=== PATIENT | female | born 1995 | race Two or more races ===

== ENCOUNTER 2020-02-26 08:02 | Outpatient (REF) | payer OTHER, SELFPAY | END 2020-02-26 08:03 | disposition home or self-care (01) | LOC: HO.LAB 08:02 | PROVIDERS: Visit Provider Internal Medicine | DX: Z20.828 Contact with and (suspected) exposure to other viral communicable diseases (principal) | CPT/HCPCS: C9803; U0003 ==

== ENCOUNTER 2020-07-09 17:11 | Emergency (ER) | payer OTHER, SELFPAY ==
[2020-07-09 17:16] VITALS: BP 142/84; PULSE 78; RESP 16; TEMP 37.2; O2SAT 98; BMI 30.9
== END 2020-07-09 20:27 | disposition left against medical advice (07) ==
PROVIDERS: Emergency Provider Emergency Medicine
DX: R10.9 Unspecified abdominal pain (principal)
CPT/HCPCS: 99282

== ENCOUNTER 2020-07-18 14:08 | Outpatient (REF) | payer OTHER, SELFPAY ==
--- NOTE | ~2020-07-18 | US_ITS ---
EXAMINATION: US RETROPERITONEAL LIMITED (RENAL ONLY) CLINICAL INFORMATION: Left lower quadrant pain. COMPARISON: [facility] 10/02/2017. CT abdomen and pelvis 09/17/2017. TECHNIQUE: Real-time imaging of the kidneys. FINDINGS: RIGHT KIDNEY: 11.1 x 4.6 x 4.9 cm (SAG x AP x TRV). The kidney is normal in size, contour, and echogenicity. Renal cortical thickness is normal. No calculi or focal parenchymal lesions. No hydronephrosis. LEFT KIDNEY: 11.5 x 4.6 x 5.1 cm (SAG x AP x TRV). The kidney is normal in size, contour, and echogenicity. Renal cortical thickness is normal. No calculi or focal parenchymal lesions. No hydronephrosis. US/US renal BI IMPRESSION: Normal renal ultrasound. No stones found on today's exam..
== END 2020-07-18 14:09 | disposition home or self-care (01) ==
LOC: HO.US 14:08
PROVIDERS: PCP Internal Medicine; Visit Provider Emergency Medicine
DX: R10.32 Left lower quadrant pain (principal); R35.0 Frequency of micturition
CPT/HCPCS: 76775

== ENCOUNTER 2022-10-22 12:22 | Emergency (ER) | payer OTHER, SELFPAY ==
[2022-10-22 12:25] VITALS: BP 152/79; PULSE 98; RESP 18; TEMP 36.2; O2SAT 95; BMI 37.6
--- NOTE | 2022-10-22 12:32 | ED_ITS ---
HPI - General Adult General Chief complaint: General Medical Stated complaint: animal bite Time Seen by Provider: 10/22/22 12:31 Source: patient and RN notes reviewed Mode of arrival: ambulatory Limitations: no limitations History of Present Illness HPI narrative: This is a 65-recu-ori-female, with a past medical history of asthma, presenting to the ER with complaints of insect bite on right middle finger. Pt is unsure what type of insect bit her. She states that she has a burning like sensation in her finger. She denies taking any medications at home to treat her current symptoms. No shortness of breath or difficulty swallowing or breathing. Denies any chest pain, fevers, chills, nausea, vomiting or diarrhea. Denies any other complaints or concerns at this time. MD complaint: insect bite Onset (ago): minute(s) Location: upper extremity Radiation: non-radiation Severity: mild Quality: burning Pain Consistency: constant Relieving factors: none Exacerbating factors: none Associated symptoms: denies other symptoms Treatments prior to arrival: none Related Data Allergies Allergy/AdvReac Type Severity Reaction Status Date / Time acetaminophen Allergy Intermediate Shortness Verified 10/22/22 12:25 [From Excedrin Extra of Breath Strength] aspirin Allergy Intermediate Shortness Verified 10/22/22 12:25 [From Excedrin Extra of Breath Strength] caffeine Allergy Intermediate Shortness Verified 10/22/22 12:25 [From Excedrin Extra of Breath Strength] Penicillins Allergy Intermediate Rash Verified 10/22/22 12:25 Review of Systems Review of Systems: Constitutional: No Weight loss, No Fever, No Chills ENT/Mouth: No Ear Pain, No Nasal Congestion, No Sinus Pain, No Hoarseness, No sore throat, No Rhinorrhea, No Swallowing Difficulty Cardiovascular: No Chest Pain, No SOB Respiratory: No Cough, No Sputum, No Wheezing Gastrointestinal: No Nausea, No Vomiting, No Diarrhea, No Constipation, No Abdominal pain Genitourinary: No Dysuria, No Urinary Frequency, No Hematuria, No Urinary Incontinence/retention, No Urgency, No Flank Pain Musculoskeletal: No joint pain, No Myalgias, No Joint Swelling Skin: No Skin Lesions, No rash Neuro: No Weakness, No Numbness, No Paresthesias [facility] Past Medical History Medical History (Updated 10/22/22 @ 12:37 by FARIDA Vasquez) Asthma Social History Social History Advance Directives: No Advance Directives Information Provided: No Physical Exam ED Vital Signs: Vital Signs - 24 hr 10/22/22 12:25 Temperature 97.2 F Pulse Rate 98 Respiratory Rate 18 Blood Pressure 152/79 H Pulse Oximetry 95 Oxygen Delivery Method Room Air BMI result Body Mass Index 37.6 General: Awake, alert, and oriented X3. No acute distress. HEENT: Normal inspection, oropharynx patent or pharyngeal erythema, or edema. No Stridor CVS: Normal heart rate and rhythm. Pulses normal. Respiratory: No respiratory distress, lungs clear to auscultation bilaterally, no wheezes, rales, or rhonchi Skin: Right finger dorsal middle phalange, there is a single, punctate puncture wound with mild edema, no fluctuance or warmth. No drainage, active bleeding, or stinger remaining in wound. Full flexion and extension of DIP, PIP and MCP. Radial pulses 2+. Extremities: Normal to inspection. Neuro: Oriented X 3. No motor deficit. No sensory deficit. Medications Administered Discontinued Medications Generic Name Dose Route Start Last Admin Trade Name Freq PRN Reason Stop Dose Admin Bacitracin 1 appl 10/22/22 12:31 10/22/22 12:37 Bacitracin Oint 0.9 Gm Packet TOPICAL 10/22/22 12:32 1 appl ONCE ONE Administration Protocol Diphtheria/Tetanus/Acell Pertussis 0.5 ml 10/22/22 12:31 10/22/22 12:37 Diphth,Pertus(Acell),Tet Adult 0.5 Ml Syringe IM 10/22/22 12:32 0.5 ml .ONCE ONE Administration Medical Decision Making Medical Decision Making MDM Narrative: This is a 89-iggl-kvy-female presenting to the emergency department with complaints of insect bite on right third finger just prior to arrival. Vital signs stable. Insect bite noted to right third digit with no surrounding erythema, full ROM of right third digit. No SOB, difficulty swallowing, chest pain. Airway is patent, no stridor noted. TDAP updated today. Was going to medicate patient Benadryl in department for symptomatic relief but would like to take this when she gets home. Take Benadryl when she returns home educated in watching for any signs of infection. Given return precautions. Patient understands agrees with plan. Patient stable for discharge. Differential Diagnosis Differential Diagnoses: The differential diagnosis associated with the presentation includes Insect bite, anaphylaxis, laceration, cellulitis Admission/Observation Consideration of admission/observation: Escalation of care including admission/observation considered Patient would have been admitted to the hospital had her work up had any findings where hospital admission was appropriate and her clinical presentation warranted hospital admission. Discharge Plan Discharge Clinical Impression: Insect bite Patient Disposition: Home, Self-Care Instructions: Cold Compress or Soak (ED) Additional Instructions: Please keep wound clean and dry. Cold compresses will help with pain and swelling. Take benadryl 50mg as directed as needed for symptoms. We updated your tetanus immunization in the department today. If any new or worsening symptoms occur, including but not limited to difficulty swallowing or breathing worsening redness, swelling, fevers or chills, please return for re-evaluation. Interventions: ED Discharge Assessment Last Done: 10/22/22 12:39 Discharge Date/Time: 10/22/22 12:51
[2022-10-22] MEDS: Bacitracin Oint 0.9 GM PACKET 1 APPL TOPICAL (12:37)
[2022-10-22] MEDS: Diphth,Pertus(ACell),Tet Adult 0.5 ML SYRINGE IM (12:37)
--- NOTE | 2022-10-22 12:38 | PC.NURSE ---
pt medicated per order in triage
== END 2022-10-22 12:51 | disposition home or self-care (01) ==
LOC: HO.ED 12:48
PROVIDERS: Emergency Provider Emergency Medicine
DX: S60.462A Insect bite (nonvenomous) of right middle finger, initial encounter (principal); W57.XXXA Bitten or stung by nonvenomous insect and other nonvenomous arthropods, initial encounter; Y93.9 Activity, unspecified; Y92.9 Unspecified place or not applicable; Y99.9 Unspecified external cause status
CPT/HCPCS: 90471; 90715; 99282; 99284

== ENCOUNTER 2023-08-10 12:06 | Emergency (ER) | payer MEDICAID, SELFPAY ==
[2023-08-10 13:03] VITALS: BP 138/87; PULSE 80; RESP 18; TEMP 36.6; O2SAT 98; BMI 38.4
--- NOTE | 2023-08-10 13:03 | ED.EXTPRO ---
HPI - Extremity Problem General Chief complaint: General Medical Stated complaint: l foot pain Time Seen by Provider: 08/10/23 13:53 Source: patient Mode of arrival: ambulatory Limitations: no limitations History of Present Illness HPI Narrative: 28-year-old female with no significant past medical history presents to the ED today for evaluation of left foot pain x1 week. She reports a callus to the lateral plantar aspect of her left foot that is painful to walk on. 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 Denies injury or trauma to the foot. Denies history of diabetes. Denies fever, chills, numbness/tingling/weakness of the foot. Related Data Previous Rx's ?Medication ?Instructions ?Recorded bacitracin zinc 500 unit/gram 1 appl topical BID #14.2 grams 08/10/23 topical ointment (Antibiotic (bacitracin zinc)) Allergies Allergy/AdvReac Type Severity Reaction Status Date / Time acetaminophen Allergy Intermediate Shortness Verified 08/10/23 13:06 [From Excedrin Extra of Breath Strength] aspirin Allergy Intermediate Shortness Verified 08/10/23 13:06 [From Excedrin Extra of Breath Strength] caffeine Allergy Intermediate Shortness Verified 08/10/23 13:06 [From Excedrin Extra of Breath Strength] Penicillins Allergy Intermediate Rash Verified 08/10/23 13:06 Review of Systems Review of Systems: Constitutional: No fever, chills, fatigue, night sweats, weight changes ENT/Mouth: No ear pain, hearing loss, nasal congestion, sinus pain, rhinorrhea, sore throat Eyes: No eye pain, swelling, redness, vision changes, discharge Cardio: No chest pain, palpitations, KESSLER, orthopnea, peripheral edema Pulm: No SOB, cough, sputum, wheezing, dyspnea, hemoptysis GI: No nausea, vomiting, hematemesis, abdominal pain, diarrhea, constipation, hematochezia, melena : No irregular bleeding, dysuria, frequency, urgency, hesitancy, hematuria, flank pain, urinary flow changes, urinary incontinence or retention MSK: No back pain, neck pain, joint pain, myalgias, +left foot pain Skin: No lesions, rashes Neuro: No weakness, numbness, paresthesias, LOC, dizziness, headache Psych: No anxiety/panic, depression, SI/HI, AH/VH All other systems reviewed and are negative. [facility] Past Medical History Attestation statement: The following information was validated with the patient. Source: old records reviewed and nursing notes reviewed Medical History Asthma Social History Social History Advance Directives: No Advance Directives Information Provided: No Physical Exam Vital Signs: Vital Signs: Last Vital Signs Temp 98 F 08/10/23 16:10 Pulse 81 08/10/23 16:10 Resp 16 08/10/23 16:10 BP 134/75 08/10/23 16:10 Pulse Ox 99 08/10/23 16:10 O2 Del Method Room Air 08/10/23 16:10 BMI result Body Mass Index 38.4 Vital signs stable Const: General: cooperative, healthy appearing, comfortable and no acute distress Orientation/consciousness: patient oriented x3 Limitations: no limitations HEENT: Head: Yes normal to inspection, Yes No palpable skull fracture present, Yes normocephalic and Yes atraumatic Resp: Effort & Inspection: normal respiratory effort and able to speak in complete sentences Auscultation: clear to auscultation bilaterally Cardio: Rate: regular rate Rhythm: regular rhythm Skin: Other: + plantar wart noted to the lateral aspect of left foot. Tender to palpation. No erythema, fluctuance or warmth. Neuro: General: patient oriented x3 Extrem: General: Yes normal exam except as noted Course Course Course Narrative: This is a Rapid Medical Examination (RME) performed by Billie Loo PA-C in triage. Full HPI, ROS, assessment and treatment plan per primary provider in the Main ED. 28 y/o female presenting to the ER for evaluation of left foot pain. reports having a callus. exam c/w plantar wart in the bottom of the foot lateral aspect. no erythema or fluctuance to suggest infection Plan: excise wart vs topical treatments Reevaluation(s) Reevaluation #1: 1450-- patient seen in triage and provided with management options. Patient would like the plantar wart excised as she needs to return back to work. Will plan for excision. 1907-- Plantar wart on left foot excised using 10 mL lidocaine with epi and 15 blade scalpel. Patient tolerated procedure well. Entire area and head of wart excised. Will send bacitracin to pharmacy. Patient has remained stable throughout ED visit today. Discussed worrisome signs and symptoms and when to return to the ED. All questions answered at this time. Patient is agreeable with disposition and stable for discharge. Medications Administered Discontinued Medications Generic Name Dose Route Start Last Admin Trade Name Emmy PRN Reason Stop Dose Admin Bacitracin 1 appl 08/10/23 15:57 08/10/23 16:02 Bacitracin Oint 0.9 Gm Packet TOPICAL 08/10/23 15:58 1 appl ONCE ONE Administration Protocol Lidocaine/Epinephrine 10 ml 08/10/23 15:00 08/10/23 15:07 Lidocaine Hcl 1%/Epi 1:100,000 10 Ml Vial INFILTRATI 08/10/23 15:01 10 ml ONCE ONE Administration Medical Decision Making Medical Decision Making MDM Narrative: 28-year-old female with no significant past medical history presents to the ED today for evaluation of left foot pain x1 week. Vital signs stable. She is afebrile. On exam, there is a plantar wart noted to the lateral aspect of left foot. Tender to palpation. No erythema, fluctuance or warmth. Differential diagnosis includes plantar wart, callus. Unlikely osteomyelitis, cellulitis. Plan for local anesthesia, excision and discharge. Differential Diagnosis Differential Diagnoses: The differential diagnosis associated with the presentation includes as above. Admission/Observation Not indicated Tests considered The following testing was considered but not selected: Considered ordering x-ray of left foot however clinical diagnosis of plantar wart, not warranted at this time. Considered ordering labs however there is no concern for infection, not warranted at this time. Prescription Management I considered prescription management with: Pain Medication Social Determinants Patient?s care significantly limited by Social Determinants of Health including: Other Social Determinant of Health Critical Care Time Critical Care Time Critical Care Time: No Discharge Plan Discharge Clinical Impression: Plantar wart of left foot Patient Disposition: Home, Self-Care Instructions: Plantar Wart (ED) Additional Instructions: A plantar wart was excised from your left foot. Please keep the area clean and dry. You may apply bacitracin or neosporin. You have been provided with a referral to a primary care provider. You may call them to establish care. They will not call you. You have also been provided with a referral to a arabic teacher. You may call them to make an appointment. They will not call you. Return with new or worsening symptoms. In the case of emergency call 911. Prescriptions: New bacitracin zinc [Antibiotic (bacitracin zinc)] 500 unit/gram ointment 1 appl topical BID Qty: 14.2 0RF Referrals: [facility] Family Medicine [Provider Group] [facility] [Provider Group] [facility] [Provider Group] Ian Perdomo MD [Physician] - Stand Alone Forms: Work/School Release Interventions: ED Discharge Assessment Last Done: 08/10/23 16:10 Discharge Date/Time: 08/10/23 16:18 Print Language: [place] Islander
[2023-08-10] MEDS: Lidocaine HCl 1%/Epi 1:100,000 10 ML VIAL INFILTRATI (15:07)
--- NOTE | 2023-08-10 15:08 | PC.NURSE ---
Pt awaitng for provider, on stretcher, calm/cooperative, respiration even and unlabored.
[2023-08-10] MEDS: Bacitracin Oint 0.9 GM PACKET 1 APPL TOPICAL (16:02)
[2023-08-10 16:10] VITALS: BP 134/75; PULSE 81; RESP 16; TEMP 36.6; O2SAT 99
== END 2023-08-10 16:18 | disposition home or self-care (01) ==
PROVIDERS: Emergency Provider Emergency Medicine Emergency Medical Services
DX: B07.0 Plantar wart (principal)
CPT/HCPCS: 11420; 99283; 99284

== ENCOUNTER 2023-08-20 09:38 | Outpatient (REF) | payer MEDICAID, SELFPAY ==
[2023-08-20 11:42] LABS: MANUAL DIFF FLAG NO
[2023-08-20 11:57] LABS: Alanine Aminotransferase 37 U/L (0-31); Alkaline Phosphatase 70 U/L (39-117); Anion Gap 11 (12-20); Aspartate Amino Transferase 29 U/L (5-31); Bilirubin Direct 0.2 mg/dL (0.0-0.5); Bilirubin Total 0.4 mg/dL (0.0-1.0); Blood Urea Nitrogen 14 mg/dL (9-16); Calcium 9.1 mg/dL (8.4-10.2); Carbon Dioxide 27 mmol/L (22-29); Chloride 106 mmol/L (96-108); Cholesterol 143 mg/dL (<200); Estimated Glomerular Filt Rate > 60; Glucose Random 86 mg/dL (60-115); HDL Cholesterol 51 mg/dL (>40); LDL Cholesterol Calculated 80 mg/dL (<100); Potassium 4.2 mmol/L (3.3-5.1); Sodium 140 mmol/L (135-145); Total Protein 7.3 g/dL (6.5-8.0); Triglycerides 62 mg/dL (<150)
[2023-08-20 11:59] LABS: Basophils Percent Auto 0.3 % (0-2); Eosinophils Absolute Auto 0.1 X10*3/uL (0.0-0.4); Eosinophils Percent Auto 0.9 % (0-4); Hematocrit 42.1 % (37.0-47.0); Hemoglobin 13.9 g/dl (12.0-16.0); Imm Gran Abs Auto 0.02 X10*3/uL (0.00-0.03); Imm Gran Pct Auto 0.3 % (0.0-0.4); Lymphocytes Absolute Auto 1.8 X10*3/uL (1.2-4.9); Lymphocytes Percent Auto 22.8 % (20-40); Mean Corpuscular Hemoglobin 30.9 pg (27.0-33.0); Mean Corpuscular Volume 93.6 fL (80.0-98.0); Mean Platelet Volume 11.1 fL (9.4-12.3); Monocytes Absolute Auto 0.4 X10*3/uL (0.1-1.2); Monocytes Percent Auto 5.1 % (2-11); Neutrophils Absolute Auto 5.6 x10*3/uL (2.0-8.3); Neutrophils Percent Auto 70.6 % (45-73); Platelet Count 220 X10*3/uL (160-400); Red Cell Distribution Width 13.3 % (11.0-16.0); White Blood Count 7.9 X10*3/uL (4.8-10.8)
[2023-08-20 12:07] LABS: Estimated Average Glucose 111 mg/dL; Hemoglobin A1c % 5.5 % (<6.0)
[2023-08-21 10:53] LABS: ~HepC Num1 0.07 S/CO (0.00-0.79); ~Hepatitis C Antibody Nonreactive (Nonreactive)
[2023-08-24 20:48] LABS: HIV RNA PCR Qn Copies Not Detected Copies/mL; HIV RNA PCR Qn Log Copies Not Detected Log cps/mL
== END 2023-08-20 09:39 | disposition home or self-care (01) ==
LOC: HO.HHCL 09:38
PROVIDERS: Visit Provider Internal Medicine
DX: Z00.00 Encounter for general adult medical examination without abnormal findings (principal)
CPT/HCPCS: 36415; 80048; 80061; 80076; 83036; 85025; 86803; 87536; 87900

== ENCOUNTER 2023-10-04 18:10 | Outpatient (REF) | payer MEDICAID, SELFPAY | END 2023-10-04 18:11 | disposition home or self-care (01) | LOC: HO.HHCLNP 18:10 | PROVIDERS: Visit Provider Registered Nurse | DX: R39.9 Unspecified symptoms and signs involving the genitourinary system (principal) | CPT/HCPCS: 87086; 87088; 87186 ==

== ENCOUNTER 2024-07-31 09:37 | Outpatient (REF) | payer MEDICAID, SELFPAY ==
--- NOTE | ~2024-07-31 | XR_ITS ---
EXAMINATION: XR FINGER, RIGHT CLINICAL INFORMATION: atraumatic pain in right middle finger MCP joint for 2 months. COMPARISON: None available. TECHNIQUE: Three views of the right third digit. FINDINGS: The bones and soft tissues are normal. No fracture. Alignment is anatomic. Joints appear normal. No MCP joint abnormality seen. XR/XR finger RT min 2V IMPRESSION: Normal examination. Electronically signed by: Cricket Sepulveda MD 07/31/2024 10:01 AM EDT
--- OUTSIDE RECORDS SUMMARY | 2024-07-31 10:44 | XMS_ITS | Clinical Summary ---
Author Organization [facility] Address [address] [place] [address] Phone Care Team Providers Care Alteration Worker Name Role Phone Unavailable Primary Care Provider Unavailabl e Immunizations Immunization Administration Dates Next Due DTaP 5 07/20/2000, 7,1995,10/20,1995 HPV, Quadrivalent 06/06/2009,01/18/2008,11/16/19 08 Hep A, ped/adol 12/21/2013,08/30/2002 Hep B, ped/adol 1995,1995,1995 Hib (HbOC) 12/08/1996, 6,1995,08/18 IPV 1995,1995,1995 Influenza, injectable, quadr ivalent, preservative free 01/08/2016,12/21/2013 Influenza, injectable, trivalent 008,02/18/2002,02/14/1999,01/01 MMR 09/26/1999,01/01/1997 Meningococcal Conj (Menactra) MCV4P 01/08/2016,0 11/16/2007 OPV 07/20/2000 Tdap 11/16/2007 Unknown Vaccine 08/21/2005 Family History Relation Name Status Comments Mother Alive Mother: Alive a nd well Other Family history of Diabetes mellitus, Family history of Elevated cholesterol, Family history of Migraines, Family history of ADD/ADHD, Family history of Deafness, Family history of Asthma Sister 1 Alive Sister: Asthma, Asthma Sister 2 Alive Sister: Asthma, Asthma Social History Tobacco Use Types Packs/Day Years Used Date Smoking Tobacco: Never Comments:Never smoker Comments Unknown Sex and Gender Information Value Date Recorded Sex Assigned at Not on file Legal Sex Female 5:12 PM EDT Gender Identity Not on file Sexual Orientation Not on file Last Filed Vital Signs Vital Sign Reading Time Taken Comments Blood Pressure 119/80 01/08/2016 12:00 AM EDT Pulse 92 01/08/2016 12:00 AM EDT Temperature 36.1 ??C (96.9 ??F) 12/21/2013 12:00 AM E DT Respiratory Rate - - Oxygen Saturation 99% 09/01/2010 12:00 AM EDT Inhaled Oxygen Concentration - - Weight 74.5 kg (164 lb 3.2 oz) 01/08/2016 12:00 AM EDT Height 161.3 cm (5' 3.5 ) 01/08/2016 12:00 AM ED T Body Mass Index 28.63 01/08/2016 12:00 AM EDT Plan of Treatment Health Maintenance Due Date Last Done Comments Varicella Vaccines (1 of 2 - 13+ 2-dose series) 06/10/2008 DTaP,Tdap,and Td Vaccines (7 - Td or Tdap) 11/15/2017 11/16/2007, 07/20/2000, 01/01/1997, Additional history exists Influenza Vaccines (#1) 2023 01/08/20 16, 12/21/2013, 01/18/2008, Additional history exists COVID-19 Vaccine (2023- season) 2023 Hepatitis B Vaccines Completed 1995, 1995, 1995 HIB Vaccines Completed 12/08/1996, 12/04, 1995, Additional history exists MMR Vaccines Completed 09/26/1999, 01/01/1997 IPV Vaccines Completed 07/20/2000, 12/04, 1995, Additional history exists HPV Vaccines Completed 06/06/2009, 01/03, 11/16/2007 Hepatitis A Vaccines Completed 12/21/2013, 08/31/19 03 Meningococcal Vaccine Aged Out 01/08/2016, 008 No longer eligible based on patient's age to complete this topic Men B Vaccine Aged Out No longer elig ible based on patient's age to complete this topic Pneumococcal Vaccine Aged Out No long er eligible based on patient's age to complete this topic
--- OUTSIDE RECORDS SUMMARY | 2024-07-31 10:44 | XMS_ITS | Encounter Summary ---
Author Organization [employer] Address [address] [place] [address] Care Team Providers Care Machinist Name Role Phone Katharine Neumann MD Primary Care Provide r Reason for Referral * Consultation (Routine) - Pending Review Specialty Diagnoses / Procedures Referred By Rosalba tatum Referred To Contact Hand Surgery Diagnoses Pain of finger of right hand Andrei [place] MD [address] [place] [address] Phone: tel: fax: Referral ID Status Reason Start Date Expiration Date Visits Requested Visits Authorized [id number] Pending Review Specialty Services Required 07/31/2024 07/31/2025 1 1 Reason for Visit * Reason Comments Finger Pain Encounter Details Date Type Department Care Team (Late st Contact Info) Description 07/31/2024 9:00 AM EDT Office Visit [facility] [address], [place] [id number] Pain of finger of right hand (Primary Dx); Elevated blood pressure reading in office without diagnosis of hypertension Social History Tobacco Use Types Packs/Day Years Used Date Smoking Tobacco: Never Passive Smoke Exposure: Never Smokeless Tobacco: Never Alcohol Use Standard Drinks/Week Comments Never 0 (1 standard drink = 0.6 oz pur e alcohol) Depression Answer Date Recorded Patient Health Questionnaire-9 Score 16 04/19/2024 Patient Health Questionnaire-9 Score 16 04/19/2024 Last PHQ-9: Questionnaire Data Not on file 0 04/19/2024 Housing Stability Answer Date Recorded What is your housing situation today? I am not s ure 08/19/[address] you li ve. Do you have problems with any of the following? None of the above 08/19/2023 Food Insecurity Answer Date Recorded Within the past 12 months, y ou worried that your food would run out before you got money to buy more: Never True 08/19/2023 Within the past 12 months,th e food you bought just didn't last and you didn't have enough money to get more: Never True Transportation Answer Date Recorded In the past 12 months, has l ack of transportation kept you from medical appts, meetings, work or from getting things needed for daily living? No 08/19/2023 Utilities Answer Date Recorded In the past 12 months, has t he electric, gas, oil or water company threatened to shut off services in your home? I am not sure 08/19/2023 Depression Answer Date Recorded Patient Health Questionnaire-2 Score 5 04/19/2024 Comments No Sex and Gender Information Value Date Recorded Sex Assigned at Female 02/02/2022 10:35 AM EDT Legal Sex Female 10:35 AM EDT Gender Identity Female 02/02/2022 10:35 AM EDT Sexual Orientation Straight 02/02/2022 10 :35 AM EDT documented as of this encounter Last Filed Vital Signs Vital Sign Reading Time Taken Comments Blood Pressure 143/84 07/31/2024 8:45 AM EDT Pulse 81 07/31/2024 8:45 AM EDT Temperature 36.8 ??C (98.2 ??F) 07/31/2024 8:45 AM ED T Respiratory Rate 18 07/31/2024 8:45 AM EDT Oxygen Saturation 98% 07/31/2024 8:45 AM EDT Inhaled Oxygen Concentration - - Weight 98.9 kg (218 lb) 07/31/2024 8:45 AM EDT Height - - Body Mass Index 37.42 04/19/2024 10:51 AM EST documented in this encounter Plan of Treatment Upcoming Encounters Date Type Department Care Team (Late st Contact Info) Description 08/07/2024 1:45 PM EDT Telemedicine [facility] [address] [place] [address] Katharine Neumann MD [address] [facility] [place] [address] Scheduled Referrals Name Type Priority Associated Diagnoses Orde r Schedule Referral to Hand Surgery Outpatient Referral Routine Pain of finger of right hand Expected: 07/31/2024 (Approximate), Expires: 07/31/2025 documented as of this encounter Procedures Procedure Name Priority Date/Time Associated Diagnosis Comments XR FINGERS 2+ VIEWS RIGHT Routine 07/31/2024 9:38 AM EDT Pain of finger of right hand documented in this encounter Results * XR Fingers 2+ Views Right (07/31/2024 9:38 AM EDT) Anatomical Region Laterality Modality Upper Extremities, Fingers Right [facility] graphic Imaging 07/31/2024 9:38 AM EDT Narrative 07/31/2024 10:03 AM EDT ?[facility] ?[address] ?[place] [id number] ?XRay Report ? Signed ? Patient: Carmelina Bailey ?MR#: [id number] ?? [id number] ? : 1995 ?Acct:[id number] ? Age/Sex: 29 / F ?ADM Date: 07/31/24 ? Loc: HO.HHCX ? Attending Dr: Andrei Eduardo MD ? Ordering Physician: ANDREI EDUARDO MD ?? Date of Service: 07/31/24 ?? Procedure(s): XR finger RT min 2V ?? Accession Number(s): [id number] ? cc: ANDREI EDUARDO MD ? EXAMINATION: ?? XR FINGER, RIGHT ? CLINICAL INFORMATION: ?? atraumatic pain in right middle finger MCP joint for 2 months. ? COMPARISON: ?? None available. ? TECHNIQUE: ?? Three views of the right third digit. ? FINDINGS: ?? The bones and soft tissues are normal. No fracture. Alignment is ?? anatomic. Joints appear normal. No MCP joint abnormality seen. ? XR/XR finger RT min 2V ?? IMPRESSION: ?? Normal examination. ? Electronically signed by: ??Cricket Sepulveda MD ??07/31/2024 10:01 AM EDT RP ? Dictated By: ?Cricket Sepulveda MD ? Signed By: ?<Electronically signed by Cricket Sepulveda MD in OV> ?07/31/24 1001 ? DD/ 0938 ? TD/TT: 07/31/24 0950 ? [employer]: ? Procedure Note Leyla, Image - 07/31/2024 [facility] [address] [place] [address] XRay Report Signed Patient: Carmelina BaileyMR#: [id number] : 1995Acct:[id number] Age/Sex: 29 / FADM Date: 07/31/24 Loc: HO.HHCX Attending Dr: Andrei [place] MD Ordering Physician: ANDREI EDUARDO MD Date of Service: 07/31/24 Procedure(s): XR finger RT min 2V Accession Number(s): [id number] cc: ANDREI EDUARDO MD EXAMINATION: XR FINGER, RIGHT CLINICAL INFORMATION: atraumatic pain in right middle finger MCP joint for 2 months. COMPARISON: None available. TECHNIQUE: Three views of the right third digit. FINDINGS: The bones and soft tissues are normal. No fracture. Alignment is anatomic. Joints appear normal. No MCP joint abnormality seen. XR/XR finger RT min 2V IMPRESSION: Normal examination. Electronically signed by: Cricket Sepulveda MD 07/31/2024 10:01 AM EDT Dictated By: Cricket Sepulveda MD Signed By: <Electronically signed by Cricket Sepulveda MD in OV> 07/31/24 1001 DD/ 0938 TD/TT: 07/31/24 0950 [employer]: Andrei [place] MD IMG XR PROCEDURES Final Result documented in this encounter Visit Diagnoses Diagnosis Pain of finger of right hand- Primary Elevated blood pressure reading in office without diagnosis of hypertension documented in this encounter Additional Health Concerns Assessment Noted Time PHQ-9 Depression Total Score: 16 025 10:52 AM EST documented as of this encounter Care Teams Machinist Relationship Specialty Start Date End Date Katharine Neumann MD [address] [place] [address] PCP - General Internal Medicine 08/19/23 documented as of this encounter
--- OUTSIDE RECORDS SUMMARY | 2024-07-31 10:44 | XMS_ITS | Clinical Summary ---
Author Organization [employer] Address [address] [facility] 7[address] [place] [address] Care Team Providers Care Optoelectronics Engineer Name Role Phone Katharine Neumann MD Primary Care Provide r Allergies Active Allergy Reactions Criticality Noted Date Comments Amoxicillin-Pot Clavulanate Rash Low 03/25/20 22 Acetaminophen-Caffeine Shortness of breath High 03/06 Medications cholecalciferol (Vitamin D-3) 50 MCG (1999) capsule Take 1 capsule by mouth 1 (one) time each day. 05/18/19 22 Active fluticasone (Flovent HFA) 110 MCG/ACT inhaler Inhale 1 puff every 12 (twelve) hours. 09/05/19 22 Active HPV 9-valent (Gardasil 9) 0.5 mL suspension vaccine apply once IM 11/12/19 19 Active Methylcellulose , Laxative, (Citrucel) 500 MG tablet Take 2 capsules daily as alternative to senna 07/08/19 22 Active cetirizine (ZyrTEC) 10 MG tabletIndicatio ns:Dermatitis due to drug reaction Take 1 tablet (10 mg) by mouth in the morning. Prn. 30 tablet 03/25/20 22 Active diphenhydrAMINE (BENADryl) 25 MG capsuleIndicati ons:Dermatitis due to drug reaction Take 2 capsules (50 mg) by mouth every 6 (six) hours if needed for itching. May take 1-2 capsules prn rashor itching 30 capsule 03/25/20 22 Active EPINEPHrine (Epipen) 0.3 MG/0.3ML injection syringeIndicati ons:Dermatitis due to drug reaction Inject 0.3 mL (0.3 mg) as directed 1 (one) time if needed for anaphylaxis. Inject into upper leg. Call 911 after use. 2 each 1 03/25/20 22 Active cyclobenzaprine (Flexeril) 10 MG tabletIndicatio ns:Neck pain,Acute pain of left shoulder,Muscle spasm Take 1 tablet (10 mg) by mouth if needed in the morning, at noon, and at bedtime for muscle spasms for up to 10 days. 30 tablet 08/19/19 24 Active cromolyn (Nasachrom) 5.2 MG/ACT nasal sprayIndication s:Acute bacterial sinusitis Administer 1 spray into each nostril 4 times daily. 26 mL 12 02/10/20 24 025 Active albuterol 108 (90 Base) MCG/ACT inhalerIndicati ons:Mild intermittent asthma, unspecified whether complicated Inhale 2 puffs every 4 (four) hours if needed for shortness of breath or wheezing. 18 g 2 02/10/20 24 Active Tirzepatide-Clarence ght Management (Zepbound) 2.5 MG/0.5ML solution auto-injectorIn dications:Class 2 obesity due to excess calories without serious comorbidity with body mass index (BMI) of 38.0 to 38.9 in adult Inject 0.5 mL (2.5 mg) under the skin 1 (one) time per week. 2 mL 04/19/19 25 Active phentermine 15 MG capsuleIndicati ons:Class 2 obesity due to excess calories without serious comorbidity with body mass index (BMI) of 38.0 to 38.9 in adult Take 1 capsule (15 mg) by mouth before breakfast. 30 capsule 06/07/19 25 Active topiramate (Topamax) 25 MG tabletIndicatio ns:Class 2 obesity due to excess calories without serious comorbidity with body mass index (BMI) of 38.0 to 38.9 in adult TAKE 1 TABLET BY MOUTH EVERY TWELVE HOURS 30 tablet 1 07/11/19 25 Active ibuprofen 400 MG tablet Take 1 tablet (400 mg) by mouth every 6 (six) hours if needed for moderate pain or fever for up to 30 doses. 30 tablet 08/01/19 25 Active Blood Pressure kit 1 each 2 times daily. 1 kit 08/01/19 25 026 Active topiramate (Topamax) 25 MG tabletIndicatio ns:Class 2 obesity due to excess calories without serious comorbidity with body mass index (BMI) of 38.0 to 38.9 in adult Take 1 tablet (25 mg) by mouth every 12 (twelve) hours. 30 tablet 1 06/07/19 25 025 Discontinued Active Problems Problem Noted Date Diagnosed Date Laceration of right thumb without complication 0 04/20/2024 Assessment & Plan (04/20/2024 1:12 PM EST): Superficial laceration to R thumb. Repaired with [place]. Discussed keeping wound clean and warning signs of infection. See procedure note. ER and return precautions given. Encounter for preventive care 04/19/2024 Assessment & Plan (04/19/2024 12:55 PM EST): See HPI Class 2 obesity due to exces s calories without serious comorbidity with body mass index (BMI) of 38.0 to 38.9 in adult 04/19/2024 Assessment & Plan (06/06/2024 3:54 PM EST): Today extensive discussion was done about life style modifications I advise healthy diet (low calorie) and cardiovascular exercise I will prescribe for patient phentermine 15mg daily and Topamax 25mg daily F/u 4 weeks Assessment & Plan (04/19/2024 12:56 PM EST): Today extensive discussion was done about life style modifications I advise healthy diet (low calorie) and cardiovascular exercise I will start her on zepbound, side effects where reviewed with patient, I let patient know this medication is contraindicated in pregnanacy and she will have to use contraception while she is on medication, patient understood and read back PCOS (polycystic ovarian syndrome) 04/19/2024 Assessment & Plan (04/19/2024 12:56 PM EST): Patient did not tolerate metformin Continue to follow with specialist Acute bacterial sinusitis 02/10/2024 Assessment & Plan (02/10/2024 2:00 PM EST): PT going on plane on 4 days. Symptoms of acute bacterial sinusitis. PCN allergy. Will treat presumptively for ABS. -cromolyn nasal spray -azithromycin 5 days 02/10/24 Lightheadedness 12/02/2023 Assessment & Plan (12/02/2023 2:12 PM EDT): Probably related to decrease PO intake secondary to Metformin, ro hypoglycemia I discussed with her about having smaller fraction meals and always including protein with it. Advised to restart Metformin XR 500 mg once per day and follow up with MEDICAL SOCIAL CONSULTANT or PCP. Neck pain 08/19/2023 Assessment & Plan (08/19/2023 4:27 PM EDT): Apply heat on affected area Increase flexeril 10mg Q 8hrs Ibuprofen Q 8hrs PRN PT referral FMLA paper will be fill out Acute pain of left shoulder 08/19/2023 Assessment & Plan (08/19/2023 4:28 PM EDT): As above Muscle spasm 08/19/2023 Assessment & Plan (08/19/2023 4:28 PM EDT): As above Health care maintenance 08/19/2023 Asthma 10/23/2021 Assessment & Plan (08/19/2023 4:28 PM EDT): Controlled c/w current interventions Chronic constipation 09/18/2020 Encounters Date Type Department Care Team Description 07/31/2024 9:00 AM EDT Office Visit [facility] [address] [place] [address] Pain of finger of right hand (Primary Dx); Elevated blood pressure reading in office without diagnosis of hypertension 07/08/[address] [facility] [address] [place] [address] Katharine Neumann MD Class 2 obesity due to excess calories without serious comorbidity with body mass index (BMI) of 38.0 to 38.9 in adult 06/28/2024 Population Health Risk Score [facility] Department [address] [place] [phone] Provider, Population Health Generic 06/06/2024 3:30 PM EST Telemedicine [facility] [address] [place], [place] [phone] Katharine Neumann MD Class 2 obesity due to excess calories without serious comorbidity with body mass index (BMI) of 38.0 to 38.9 in adult (Primary Dx) 06/06/2024 Travel 05/25/[address] [facility] [address] [place], [place] [phone] Katharine Neumann MD PA from Last 3 Months Immunizations Name Administration Dates Next Due DTaP 07/20/2000, 7,1995,10/20,1995 DTaP, 5 pertussis antigens 07/20/2000,,1995,10/20,1995 HPV 9-Valent 06/06/2009,01/18/2008,11/16/2007 HPV, Quadrivalent 06/06/2009,01/18/2008,11/16/19 08 Hep A, Unspecified 12/21/2013,08/30/2002 Hep A, ped/adol, 2 dose 12/21/2013,08/30/2002 Hep B, Adolescent or Pediatric 1995,1995,1995 Hep B, Unspecified 1995,1995, 996 HiB, unspecified 12/08/1996, 6,1995,08/18 Hib (HbOC) 12/08/1996, 6,1995,08/18 IPV 07/20/2000, 6,1995,08/18 Influenza injectable quadriv alent preservative free 04/23/2021,01/08/2016,12/21/2013 Influenza live intranasal qu adrivalent LIAV4 12/21/2013 Influenza, IIV3, injectable 01/18/2008,1 04/20/2001,02/14/1999,01/01 Influenza, Unspecified 01/18/2008,2001,02/14/1999,01/01 Influenza, seasonal, injecta ble, preservative free 04/19/2024 MMR 09/26/1999,01/01/1997 Meningococcal MCV4, Unspecified 11/16/2007 Meningococcal MCV4P ACYW-135 01/08/2016,11/16/19 08 Moderna Covid-19 Vaccine 12+ 06/24/2021,06/15/19 21,05/17/2020 OPV, Trivalent 07/20/2000 Pfizer Covid-19 Vaccine 12+ 04/19/2024 Pneumococcal Conjugate PCV 20 08/19/2023 Tdap 10/22/2022,11/25/2019,11/16/2007 Social History Tobacco Use Types Packs/Day Years Used Date Smoking Tobacco: Never Passive Smoke Exposure: Never Smokeless Tobacco: Never Tobacco Cessation:Counseling Given: Not Answered Alcohol Use Standard Drinks/Week Comments Never 0 [...] Orientation Straight 02/02/2022 10 :35 AM EDT Last Filed Vital Signs Vital Sign Reading Time Taken Comments Blood Pressure 143/84 07/31/2024 8:45 AM EDT Pulse 81 07/31/2024 8:45 AM EDT Temperature 36.8 ??C (98.2 ??F) 07/31/2024 8:45 AM ED T Respiratory Rate 18 07/31/2024 8:45 AM EDT Oxygen Saturation 98% 07/31/2024 8:45 AM EDT Inhaled Oxygen Concentration - - Weight 98.9 kg (218 lb) 07/31/2024 8:45 AM EDT Height 162.6 cm (5' 4 ) 04/19/2024 10:51 AM EST Body Mass Index 37.42 04/19/2024 10:51 AM EST Plan of Treatment Upcoming Encounters Date Type Department Care Team (Late st Contact Info) Description 08/07/2024 1:45 PM EDT Telemedicine [facility] [address] [place] [address] Katharine Neumann MD [address] [place] [address] Health Maintenance Due Date Last Done Comments HIV Screening 1995 Family Planning (PISQ) 06/10/2010 Pap Smear 06/16/2024 06/16/2021 Alcohol/Substance Use Screening 08/18/2024 08/19/2023 SDOH Screening 08/18/2024 08/19/2023 Depression Screening 04/19/2025 04/19/2024, 04/19/19 25 Tobacco Screening 07/31/2025 07/31/2024 Lipid Panel 08/19/2028 08/20/2023, 05/15/2021 DTaP/Tdap/Td Vaccines (9 - Td or Tdap) 10/22/2032 10/22/2022, 11/25/2019, 11/16/2007, Additional history exists Zoster Vaccines (1 of 2) 06/10/2045 RSV Patients and Patients Aged 60 years or older (1 - 1-dose 75+ series) 06/10/2070 Hepatitis B Vaccines Completed 1995, 1995, 1995, Additional history exists HIB Vaccines Completed 12/08/1996, 08/1996, 1995, Additional history exists IPV Vaccines Completed 07/20/2000, 07/04, 1995, Additional history exists HPV Vaccines Completed 06/06/2009, 07/2009, 01/18/2008, Additional history exists Hepatitis A Vaccines Completed 12/21/2013, 12/21/2013, 08/30/2002, Additional history exists Meningococcal Vaccine Aged Out 01/08/2016 , 11/16/2007, 11/16/2007 No longer eligible based on patient's age to complete this topic Pneumococcal Vaccine: Pediatrics (0 to 5 Years) and At-Risk Patients (6 to 49) Years) Completed 08/19/2023 Hepatitis C Screening Completed 08/20/2023 COVID-19 Vaccine Completed 04/19/2024, , 06/14/2020, Additional history exists Influenza Vaccine Completed 04/19/2024, , 01/08/2016, Additional history exists RSV under 20 months Aged Out No longe r eligible based on patient's age to complete this topic Rotavirus Vaccines Aged Out No longer eligible based on patient's age to complete this topic Procedures Procedure Name Priority Date/Time Associated Diagnosis Comments XR FINGERS 2+ VIEWS RIGHT Routine 07/31/2024 9:38 AM EDT Pain of finger of right hand HEPATITIS C AB W/REFL TO HCV RNA, QN, PCR Routine 08/20/2023 9:40 AM EDT Health care maintenance LIPID PANEL, STANDARD Routine 08/20/2023 9:40 AM EDT Health care maintenance THINPREP IMAGING SYSTEM PAP Routine 06/16/2021 9:08 AM EDT from Last 3 Months or Most Recently Relevant to Health Maintenance Results * XR Fingers 2+ Views Right (07/31/2024 9:38 AM EDT) Anatomical Region Laterality Modality Upper Extremities, Fingers Right Radio graphic Imaging 07/31/2024 9:38 AM EDT Narrative 07/31/2024 10:03 AM EDT ?[facility] ?[address] ?[place] [address] ?XRay Report ? Signed ? Patient: Bailey,Katharinengie ?MR#: [id number] ?? [id number] ? : 1995 ?Acct:[id number] ? Age/Sex: 29 / F ?ADM Date: 07/31/24 ? Loc: HO.HHCX ? Attending Dr: Andrei Eduardo MD ? Ordering Physician: ANDREI EDUARDO MD ?? Date of Service: 07/31/24 ?? Procedure(s): XR finger RT min 2V ?? Accession Number(s): [id number] ? cc: ANDREI EDUARDO MD ? EXAMINATION: [...] DD/ 0938 ? TD/TT: 07/31/24 0950 ? Carpenter Packing: ? Procedure Note Catalina Mayer - 07/31/[address] [address] XRay Report Signed Patient: Carmelina Bailey#: [id number] : 1995Acct:[id number] Age/Sex: 29 / FADM Date: 07/31/24 Loc: HO.HHCX Attending Dr: Andrei Eduardo MD Ordering Physician: ANDREI EDUARDO MD Date of Service: 07/31/24 Procedure(s): XR finger RT min 2V Accession Number(s): [id number] cc: ANDREI EDUARDO MD EXAMINATION: XR FINGER, [...] Cricket Sepulveda MD 07/31/2024 10:01 AM EDT RP Dictated By: Cricket Sepulveda MD Signed By: <Electronically signed by Cricket Sepulveda MD in OV> 07/31/24 1001 DD/ 0938 TD/TT: 07/31/24 0950 Carpenter Packing: us Andrei Eduardo MD IMG XR PROCEDURES Final Result * Hepatitis C Antibody with Reflex to HCV, RNA, Quantitative, Real-Time PCR (08/20/2023 9:40 AM EDT) Pathologist [facility] Hepatitis C Antibody Nonreactive Nonreactive [facility] Comment:Antibodies to HCV no t detected; does not exclude early acuteHCV infection. Blood Venous blood specimen / Unknown 08/20/2023 9:40 AM EDT 08/20/2023 11:38 AM EDT us Katharine Benz MD LAB BLOOD ORDERABLES Final Result [facility] [address] [place] [address] [phone] * Lipid Panel, Standard (08/20/2023 9:40 AM EDT) Triglycerides 62 <150 mg/dL [facility] Comment:Desirable Triglyceri de: less than 150 mg/dLBorderline High Triglyceride 150-199 mg/dLHigh Triglyceride: 200-499 mg/dLVery High Triglyceride: greater than or equal to 5OO mg/dL Cholesterol 143 <200 mg/dL [facility] Comment:Desirable Cholestero l: less than 200 mg/dLBorderline High Cholesterol: 200-239 mg/dLHigh Cholesterol: greater than 239 mg/dL LDL Cholesterol Calculated 80 <100 mg/dL [facility] Comment:Desirable LDL: less than 100 mg/dLNear Optimal/Above Optimal LDL: 110- 129 mg/dLBorderline High LDL: 130-159 mg/dLHigh LDL: 160-189 mg/dLVery High LDL: greater than or equal to 190 mg/dL HDL Cholesterol 51 >40 mg/dL [facility] Comment:Desirable HDL: great er than 40 mg/dL Note: This HDL assay may give artificially low results in patients with liver disease. Blood Venous blood specimen / Unknown 08/20/2023 9:40 AM EDT 08/20/2023 11:38 AM EDT Katharine Benz MD LAB BLOOD ORDERABLES Final Result [facility] [address] [place] [phone] * THINPREP TIS PAP (06/16/2021 9:08 AM EDT) Clinical Information: None given [facility] COMMENT SEE COMMENT [facility] Comment: EXPLANATORY NOTE: ? The Pap is a screening test for cervical cancer. It is ?? not a diagnostic test and is subject to false negative ?? and false positive results. It is most reliable when a ?? satisfactory sample, regularly obtained, is submitted ?? with relevant clinical findings and history, and when ?? the Pap result is evaluated along with historic and ?? current clinical information. ?? COMMENT: This Pap test has been evaluated with computer assisted technology. [facility] Analyst Competitive Intelligence : SEE COMMENT [facility] Comment: NSS, CT(ASCP) CT screening location: [address] ??[address] Interpretation/R esult: Negative for intraepithelial lesion or malignancy. [facility] LMP: NONE GIVEN [facility] Prev. BX: NONE GIVEN [facility] Prev. PAP: NONE GIVEN [facility] SOURCE: None given [facility] Statement Of Adequacy: SEE COMMENT [facility] Comment: Satisfactory for evaluation. Endocervical/transformation zone component absent. Age and/or menstrual status not provided 06/16/2021 9:08 AM EDT us Nerissa Hayden CNM LAB PATHOLOGY ORDERABLES Final Result [facility] [address] from Last 3 Months or Most Recently Relevant to Health Maintenance Insurance [id number] PARTIAL [id number] [place] [address] C3 Care Teams Optoelectronics Engineer Relationship Specialty Start Date End Date Katharine Neumann MD [address] [place] [phone] PCP - General Internal Medicine 08/19/23
--- OUTSIDE RECORDS SUMMARY | 2024-07-31 10:44 | XMS_ITS | Encounter Summary ---
Author Organization [facility] Address [address] [place] [address] Phone Care Team Providers Care Dredgemaster Name Role Phone Cielo Orr MD Primary Care Provider [phone] Encounter Details Date Type Department Care Team (Late st Contact Info) Description 11/19/2016 Conversion Encounter [facility] [address] [place] [address] Social History Tobacco Use Types Packs/Day Years Used Date Smoking Tobacco: Never Comments:Never smoker Comments Unknown Sex and Gender Information Value Date Recorded Sex Assigned at Not on file Legal Sex Female 5:12 PM EDT Gender Identity Not on file Sexual Orientation Not on file documented as of this encounter Plan of Treatment Not on file documented as of this encounter Visit Diagnoses Not on filedocumented in this encounter Care Teams Dredgemaster Relationship Specialty Start Date End Date Cielo Orr MD [address] [place] [address] PCP - General 11/13/16 07/09/22 documented as of this encounter
--- OUTSIDE RECORDS SUMMARY | 2024-07-31 10:44 | XMS_ITS | Encounter Summary ---
Author Organization [id number] Address [address] [facility] [address] [place] [address] Care Team Providers Care Expander Machine Operator Name Role Phone Katharine Neumann MD Primary Care Provide r Reason for Visit * Reason Onset Date Comments PA 05/25/2024 Encounter Details Date Type Department Care Team ([facility] st Contact Info) Description 05/25/2024 Telephone [facility] [address] [place], [place] [phone] Katharine Neumann MD [address] [place], [place] [phone] PA Social History Tobacco Use Types Packs/Day Years [...] AM EDT documented as of this encounter Miscellaneous Notes * Telephone Encounter - Rivas Biswas - 05/25/2024 10:26 AM EST Tc from pt requesting PA for medication Tirzepatide-Weight Management (Zepbound) 2.5 MG/0.5ML solution auto-injector. Contact pt at [phone] documented in this encounter Plan of Treatment Upcoming Encounters Date Type Department Care Team (Late st Contact Info) Description 08/07/2024 1:45 PM EDT Telemedicine [facility] [address] [place] [phone] Katharine Neumann MD [address] [place] [address] documented as of this encounter Visit Diagnoses Not on filedocumented in this encounter Additional Health Concerns Assessment Noted Time PHQ-9 Depression Total Score: 16 025 10:52 AM EST documented as of this encounter Care Teams Expander Machine Operator Relationship Specialty Start Date End Date Katharine Neumann MD [address] [place] [phone] PCP - General Internal Medicine 08/19/23 documented as of this encounter"
--- OUTSIDE RECORDS SUMMARY | 2024-07-31 10:44 | XMS_ITS | Encounter Summary ---
Author Organization [facility] Address [address] [place] [phone] Phone Care Team Providers Care Russet Repairer Name Role Phone Cielo Orr MD Primary Care Provider [phone] Encounter Details Date Type Department Care Team (Late st Contact Info) Description 07/14/2010 Documentation [facility] [place] [facility] [address] [place] [address] Family Medicine, Physician [address] [place], [place] [phone] Social History Tobacco Use Types Packs/Day Years Used Date Smoking Tobacco: Never Assessed Comments Unknown Sex and Gender Information Value Date Recorded Sex Assigned at Not on file Legal Sex Female 5:12 PM EDT Gender Identity Not on file Sexual Orientation Not on file documented as of this encounter Plan of Treatment Not on file documented as of this encounter Visit Diagnoses Not on filedocumented in this encounter Care Teams Russet Repairer Relationship Specialty Start Date End Date Cielo Orr MD [address] [place] [address] [place] [address] PCP - General 11/13/16 07/09/22 documented as of this encounter
--- OUTSIDE RECORDS SUMMARY | 2024-07-31 10:44 | XMS_ITS | Encounter Summary ---
Author Organization [employer] Address [address] [facility] 7t [place] [address] Care Team Providers Care Press Feeder Broomcorn Name Role Phone Katharine Neumann MD Primary Care Provide r Reason for Visit * Reason Onset Date Comments Returning Call 08/20/2023 Encounter Details Date Type Department Care Team (Late st Contact Info) Description 08/20/2023 Telephone [facility] [address] [place], [place] [phone] Katharine Neumann MD [address] [place], [place] [phone] Returning Call Social History Tobacco Use Types Packs/Day Years Used Date Smoking Tobacco: Never Passive Smoke Exposure: Never Smokeless Tobacco: Never Depression Answer Date Recorded Patient Health Questionnaire-9 Score 1 08/19/2023 Patient Health Questionnaire-9 Score 1 08/19/2023 Last PHQ-9: Questionnaire Data Not on file 0 08/19/2023 Housing Stability Answer Date Recorded What is [...] Answer Date Recorded Patient Health Questionnaire-2 Score 0 08/19/2023 Comments Unknown Sex and Gender Information Value Date Recorded Sex Assigned at Female 02/02/2022 10:35 AM EDT Legal Sex Female 10:35 AM EDT Gender Identity Female 02/02/2022 10:35 AM EDT Sexual Orientation Straight 02/02/2022 10 :35 AM EDT documented as of this encounter Miscellaneous Notes * Telephone Encounter - Kunal Wilson - 08/20/2023 10:18 AM EDT Tc from stated she received a call to schedule an appt but publicity writer sees no tasks. documented in this encounter Plan of Treatment Upcoming Encounters Date Type Department Care Team (Late st Contact Info) Description 08/07/2024 1:45 PM EDT Telemedicine [facility] [address] [place], [place] [phone] Katharine Neumann MD [address] [place] [address] documented as of this encounter Visit Diagnoses Not on filedocumented in this encounter Additional Health Concerns Assessment Noted Time PHQ-9 Depression Total Score: 1 08/19/19 2:43 PM EDT documented as of this encounter Care Teams Press Feeder Broomcorn Relationship Specialty Start Date End Date Katharine Neumann MD [address] [place], [place] [phone] PCP - General Internal Medicine 08/19/23 documented as of this encounter
== END 2024-07-31 09:38 | disposition home or self-care (01) ==
LOC: HO.HHCX 09:37
PROVIDERS: Visit Provider Emergency Medicine
DX: M79.644 Pain in right finger(s) (principal)
CPT/HCPCS: 73140

== ENCOUNTER → 2024-07-31 09:38 | Outpatient (BNV) | payer MEDICAID, SELFPAY | PROVIDERS: Visit Provider Radiology Diagnostic Radiology | DX: M79.644 Pain in right finger(s) (principal) | CPT/HCPCS: 73140 ==

== ENCOUNTER 2024-08-15 09:00 | Outpatient (AMB) | payer MEDICAID, SELFPAY ==
--- NOTE | 2024-08-15 09:02 | A.OFFVIS_ITS ---
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 Patient reports that she woke up with her right middle finger swollen and painful about one month ago. She did her PCP and she was placed in a metal finger splint. Her finger is getting better but she has pain at the end of the day. She has full ROM if the finger but the ROM is painful. She denies numbness and tingling. She has dicontinued the finger splint. 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 The onset of the pain was noted on the of the previous month. 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 She describes the pain as being focused on the bone of the MCP joint and indicates that pressure and passive extension exacerbate the pain. She denies experiencing any numbness, tingling, or mechanical symptoms like locking or catching. The patient underwent an x-ray examination, which showed no abnormalities. She has maintained normal sensation to all fingers and has not experienced any changes in her baseline functionality during her daily activities. Review of Systems - Musculoskeletal: Reports pain in the right middle finger MCP joint; denies locking, catching. - Neurological: Denies numbness, tingling. Systems reviewed and are negative except as per HPI and below Physical Exam Patient is alert, oriented, and in no acute distress. Neuro: Normal sensation of the tips of all digits of the right hand at this time Vascular: Cap refill brisk Pain: Tenderness to palpation of the A1 viral of the right middle finger Pain with active and passive extension of the right middle finger ROM: Patient is able to make a closed fist and extend all digits of the right hand fully No visible or palpable locking and catching Skin: No lacerations or abrasions. General: No ecchymosis, erythema, or evidence of infection. Psych: Appears grossly normal Affect normal Attitude cooperative Results - X-ray of the right hand: Normal appearance, no abnormalities noted. Procedure Plan For the identified pretrigger flexor tenosynovitis of the right middle finger, occupational therapy is recommended to improve hand range of motion and strength. Should symptoms persist, a steroid injection into the affected tendon sheath may be considered. The patient is advised to avoid excessive lifting and hyperextension. Rest, ice, and the use of analgesics such as Tylenol or ibuprofen are recommended as needed. Patient was informed and verbally consented to the use of an ambient scribe for clinic note documentation during this visit. Discussion Notes During the visit, I discussed the likely diagnosis of pretrigger flexor tenosynovitis with the patient, detailing the inflammation's impact on the flexor tendon. Occupational therapy was recommended, focusing on range of motion and strengthening exercises to alleviate symptoms. We also covered the potential option of a steroid injection if occupational therapy, however patient has seemed uncomfortable with the thought of a steroid injection and would like to proceed with more conservative measures at this time. The patient was informed there are no immediate activity restrictions beyond avoiding heavy lifting and hyperextension. Follow-up will occur based on therapy success, and the patient was encouraged to contact me should symptoms persist or worsen. Patient Instructions - Begin occupational therapy for hand exercises. - Avoid heavy lifting and hyperextension of the finger. - Use ice, rest, and take Tylenol or ibuprofen for pain management. - Follow up if symptoms do not improve after six weeks of therapy. - Contact occupational therapy to schedule an appointment promptly. Orders: Orders OT Evaluation and Treatment Today M65.949 - Unspecified synovitis and tenosynovitis, unspecified hand Medications: Discontinued bacitracin zinc (Antibiotic (bacitracin zinc)) Discontinued Reason: Patient no longer taking 1 appl topical BID 14.2 grams 0RF Coding Level of Care Code New Pt Level 3 (46931) Diagnoses Flexor tenosynovitis of finger M65.943
[2024-08-15 09:06] VITALS: BMI 37.4
--- OUTSIDE RECORDS SUMMARY | 2024-08-15 09:23 | XMS_ITS | Encounter Summary ---
Author Organization [facility] Address [address] [place] [address] Phone Care Team Providers Care National Sales Manager Name Role Phone Cielo Orr MD Primary Care Provider [phone] Encounter Details Date Type Department Care Team (Late st Contact Info) Description 11/19/2016 Conversion Encounter [facility] [address] [place] [address] Social History Tobacco Use Types Packs/Day Years [...] on filedocumented in this encounter Care Teams National Sales Manager Relationship Specialty Start Date End Date Cielo Orr MD [address] [place] [address] PCP - General 11/13/16 07/09/22 documented as of this encounter
--- OUTSIDE RECORDS SUMMARY | 2024-08-15 09:23 | XMS_ITS | Encounter Summary ---
Author Organization [employer] Address [address] [place] [address] Care Team Providers Care Healthcare Advisory Services Manager Name Role Phone Katharine Neumann MD Primary Care Provide r Reason for Visit * Reason Onset Date Comments Returning Call 08/20/2023 Encounter Details Date Type Department Care Team ([facility] st Contact Info) Description 08/20/2023 Telephone [facility] MEDICINE [address] [place], [place] [phone] Katharine Neumann MD [address] [place], [place] [phone] Returning Call Social History Tobacco Use Types [...] a call to schedule an appt but commercial underwriter sees no tasks. documented in this encounter Plan of Treatment Upcoming Encounters Date Type Department Care Team (Late st Contact Info) Description 09/12/2024 9:00 AM EDT Telemedicine [facility] MEDICINE [address] [place], [place] [phone] Katharine Neumann MD [address] [place] [address] documented as of this encounter Visit Diagnoses Not on filedocumented in this encounter Additional Health Concerns Assessment Noted Time PHQ-9 Depression Total Score: 1 08/19/19 24 2:43 PM EDT documented as of this encounter Care Teams Healthcare Advisory Services Manager Relationship Specialty Start Date End Date Katharine Neumann MD [address] [place], [place] [phone] PCP - General Internal Medicine 08/19/23 documented as of this encounter
--- OUTSIDE RECORDS SUMMARY | 2024-08-15 09:23 | XMS_ITS | Encounter Summary ---
Author Organization [facility] Address [address] [place] [phone] Phone Care Team Providers Care Commercial Leasing Manager Name Role Phone Cielo Orr MD Primary Care Provider [phone] Encounter Details Date Type Department Care Team (Late st Contact Info) Description 07/14/2010 Documentation [facility] Family Medicine [address] [place] [address] Family Medicine, Physician [address] [place], [place] [phone] Social History Tobacco Use Types Packs/Day Years [...] on filedocumented in this encounter Care Teams Commercial Leasing Manager Relationship Specialty Start Date End Date Cielo Orr MD [address] [place] [address] [place] [address] PCP - General 11/13/16 07/09/22 documented as of this encounter
--- OUTSIDE RECORDS SUMMARY | 2024-08-15 09:23 | XMS_ITS | Clinical Summary ---
Author Organization [facility] Address [address] [place] [address] Phone Care Team Providers Care Hand Candy Cutter Name Role Phone Unavailable Primary Care Provider [...]
--- OUTSIDE RECORDS SUMMARY | 2024-08-15 09:24 | XMS_ITS | Encounter Summary ---
Author Organization [employer] Address [address] [place] [address] Care Team Providers Care Supervisor Cigarette Making Department Name Role Phone Katharine Neumann MD Primary Care Provide r Reason for Visit * Reason Onset Date Comments PA 05/25/2024 Encounter Details Date Type Department Care Team ([facility] st Contact Info) Description 05/25/2024 Telephone [facility] MEDICINE [address] [place], [place] [phone] Katharine Neumann MD [address] [place], [place] [phone] PA Social History Tobacco Use Types Packs/Day [...] 2.5 MG/0.5ML solution auto-injector. Contact pt at [phone] documented in this encounter Plan of Treatment Upcoming Encounters Date Type Department Care Team (Late st Contact Info) Description 09/12/2024 9:00 AM EDT Telemedicine [facility] MEDICINE [address] [place] [address] Katharine Neumann MD [address] [place] [address] documented as of this encounter Visit Diagnoses Not on filedocumented in this encounter Additional Health Concerns Assessment Noted Time PHQ-9 Depression Total Score: 16 025 10:52 AM EST documented as of this encounter Care Teams Supervisor Cigarette Making Department Relationship Specialty Start Date End Date Katharine Neumann MD [address] [place] [address] PCP - General Internal Medicine 08/19/23 documented as of this encounter
--- OUTSIDE RECORDS SUMMARY | 2024-08-15 09:24 | XMS_ITS | Clinical Summary ---
Author Organization [employer] Address [address] [facility] [address] [place] [address] Care Team Providers Care Mitering Machine Operator Name Role Phone Katharine Neumann MD Primary Care Provide r Allergies Active Allergy Reactions Criticality Noted Date Comments Amoxicillin-Pot Clavulanate Rash Low 03/25/20 22 Acetaminophen-Caffeine Shortness of breath High 03/06 Medications cholecalciferol (Vitamin D-3) 50 MCG (1999) capsule Take 1 capsule by mouth 1 (one) time each day. 2 Active fluticasone (Flovent HFA) 110 MCG/ACT inhaler Inhale 1 puff every 12 (twelve) hours. 2 Active HPV 9-valent (Gardasil 9) 0.5 mL suspension vaccine apply once IM 9 Active Methylcellulose, Laxative, (Citrucel) 500 MG tablet Take 2 capsules daily as alternative to senna 2 Active cetirizine (ZyrTEC) 10 MG tabletIndication s:Dermatitis due to drug reaction Take 1 tablet (10 mg) by mouth in the morning. Prn. 30 tablet 2 Active diphenhydrAMINE (BENADryl) 25 MG capsuleIndicatio ns:Dermatitis due to drug reaction Take 2 capsules (50 mg) by mouth every 6 (six) hours if needed for itching. May take 1-2 capsules prn rashor itching 30 capsule 2 Active EPINEPHrine (Epipen) 0.3 MG/0.3ML injection syringeIndicatio ns:Dermatitis due to drug reaction Inject 0.3 mL (0.3 mg) as directed 1 (one) time if needed for anaphylaxis. Inject into upper leg. Call 911 after use. 2 each 1 2 Active cyclobenzaprine (Flexeril) 10 MG tabletIndication s:Neck pain,Acute pain of left shoulder,Muscle spasm Take 1 tablet (10 mg) by mouth if needed in the morning, at noon, and at bedtime for muscle spasms for up to 10 days. 30 tablet 4 Active cromolyn (Nasachrom) 5.2 MG/ACT nasal sprayIndications :Acute bacterial sinusitis Administer 1 spray into each nostril 4 times daily. 26 mL 12 4 02/10/20 25 Active albuterol 108 (90 Base) MCG/ACT inhalerIndicatio ns:Mild intermittent asthma, unspecified whether complicated Inhale 2 puffs every 4 (four) hours if needed for shortness of breath or wheezing. 18 g 2 4 Active Tirzepatide-Weig ht Management (Zepbound) 2.5 MG/0.5ML solution auto-injectorInd ications:Class 2 obesity due to excess calories without serious comorbidity with body mass index (BMI) of 38.0 to 38.9 in adult Inject 0.5 mL (2.5 mg) under the skin 1 (one) time per week. 2 mL 5 Active phentermine 15 MG capsuleIndicatio ns:Class 2 obesity due to excess calories without serious comorbidity with body mass index (BMI) of 38.0 to 38.9 in adult Take 1 capsule (15 mg) by mouth before breakfast. 30 capsule 5 Active topiramate (Topamax) 25 MG tabletIndication s:Class 2 obesity due to excess calories without serious comorbidity with body mass index (BMI) of 38.0 to 38.9 in adult TAKE 1 TABLET BY MOUTH EVERY TWELVE HOURS 30 tablet 1 5 Active ibuprofen 400 MG tablet Take 1 tablet (400 mg) by mouth every 6 (six) hours if needed for moderate pain or fever for up to 30 doses. 30 tablet 5 Active Blood Pressure kit 1 each 2 times daily. 1 kit 5 08/01/19 26 Active Active Problems Problem Noted Date Diagnosed Date Laceration of right thumb without complication 0 04/20/2024 Assessment & Plan (04/20/2024 1:12 PM EST): Superficial laceration to R thumb. Repaired with Florien-Tatum. Discussed keeping wound clean and warning signs [...] once per day and follow up with ON SITE NURSE or PCP. Neck pain 08/19/2023 Assessment & [...] Encounters Date Type Department Care Team Description 08/07/2024 Telephone [facility] MEDICINE [address] [place], [place] [phone] Katharine Neumann MD R\S APPT FOR 08/07/2024 07/31/2024 9:00 AM EDT Office Visit [facility] [address] [place], [place] [phone] Andrei Eduardo MD Pain of finger of right hand (Primary Dx); Elevated blood pressure reading in office without diagnosis of hypertension 07/08/2024 Refill [facility] MEDICINE [address] [place] [address] Katharine Neumann MD Class 2 obesity due to excess calories without serious comorbidity with body mass index (BMI) of 38.0 to 38.9 in adult 06/28/2024 Population Health Risk Score [facility] ([facility]) Department [address] [phone] Provider, Population Health Generic 06/06/2024 3:30 PM EST Telemedicine [facility] MEDICINE [address] [place] [address] Katharine Neumann MD Class 2 obesity due to excess calories without serious comorbidity with body mass index (BMI) of 38.0 to 38.9 in adult (Primary Dx) 06/06/2024 Travel 05/25/2024 Telephone [facility] MEDICINE [address] [place] [address] Katharine Neumann MD PA from Last 3 [...] Info) Description 09/12/2024 9:00 AM EDT Telemedicine [facility] MEDICINE [address] [place] [address] Katharine Neumann MD [address] [place] [address] Health Maintenance Due Date Last Done Comments [...] AM EDT Narrative 07/31/2024 10:03 AM EDT ?[facility] ?[address] ?[place] [address] ?XRay Report ? Signed ? Patient: Bailey,Mariangie ?MR#: [id number] ?? [id number] ? : 1995 ?Acct:[id number] ? Age/Sex: 29 / F ?ADM Date: 07/31/24 ? Loc: HO.HHCX ? Attending Dr: Andrei Eduardo MD ? Ordering Physician: ANDREI EDUARDO MD ?? Date of Service: 07/31/24 ?? Procedure(s): XR finger RT min 2V ?? Accession Number(s): [id number] ? cc: ANDREI EDUARDO MD ? EXAMINATION: [...] DD/ 0938 ? TD/TT: 07/31/24 0950 ? Director Toxicology: ? Procedure Note Leyla, Image - 07/31/[address] [address] XRay Report Signed Patient: Natalie Bailey#: [id number] : 1995Acct:[id number] Age/Sex: 29 / FADM Date: 07/31/24 Loc: HO.HHCX Attending Dr: Andrei Eduardo MD Ordering Physician: ANDREI EDUARDO MD Date of Service: 07/31/24 Procedure(s): XR finger RT min 2V Accession Number(s): [id number] cc: ANDREI EDUARDO MD EXAMINATION: XR FINGER, [...] Sepulveda MD 07/31/2024 10:01 AM EDT RP Workstation: [id number] Dictated By: Cricket Sepulveda MD Signed By: <Electronically signed by Cricket Sepulveda MD in OV> 07/31/24 1001 DD/ 0938 TD/TT: 07/31/24 0950 Director Toxicology: Andrei Eduardo MD IMG XR PROCEDURES Final Result * Hepatitis C Antibody with Reflex to HCV, RNA, Quantitative, Real-Time PCR (08/20/2023 9:40 AM EDT) Hepatitis C Antibody Nonreactive Nonreactive [facility] Comment:Antibodies to HCV no t detected; does not exclude early acuteHCV infection. Blood Venous blood specimen / Unknown 08/20/2023 9:40 AM EDT 08/20/2023 11:38 AM EDT us Katharine Benz MD LAB BLOOD ORDERABLES Final Result [facility] [address] [place] [address] [phone] * Lipid Panel, Standard (08/20/2023 9:40 AM EDT) Triglycerides 62 <150 mg/dL [facility] Comment:Desirable Triglyceri de: less than 150 mg/dLBorderline High Triglyceride 150-199 mg/dLHigh Triglyceride: 200-499 mg/dLVery High Triglyceride: greater than or equal to 5OO mg/dL Cholesterol 143 <200 mg/dL [facility] Comment:Desirable Cholestero l: less than 200 mg/dLBorderline High Cholesterol: 200-239 mg/dLHigh Cholesterol: greater than 239 mg/dL LDL Cholesterol Calculated 80 <100 mg/dL [facility] Comment:Desirable LDL: less than 100 mg/dLNear Optimal/Above Optimal LDL: 110- 129 mg/dLBorderline High LDL: 130-159 mg/dLHigh LDL: 160-189 mg/dLVery High LDL: greater than or equal to 190 mg/dL HDL Cholesterol 51 >40 mg/dL [facility] Comment:Desirable HDL: great er than 40 mg/dL Note: This HDL assay may give artificially low results in patients with liver disease. Blood Venous blood specimen / Unknown 08/20/2023 9:40 AM EDT 08/20/2023 11:38 AM EDT Katharine Benz MD LAB BLOOD ORDERABLES Final Result [facility] [address] [place] [phone] * THINPREP TIS PAP (06/16/2021 9:08 AM EDT) Clinical Information: None given [employer] [facility] COMMENT SEE COMMENT [facility]OUND[facility] ON [...] has been evaluated with computer assisted technology. [facility] Photoengraving Machine Operator/Tender : SEE COMMENT [facility] Comment: NSS, CT(ASCP) CT screening location: [address] ??[id number] Interpretation/R esult: Negative for intraepithelial lesion or malignancy. [employer] [facility] LMP: NONE GIVEN [facility] Prev. BX: NONE GIVEN [facility] Prev. PAP: NONE GIVEN [facility] ON LAB SYSTEM SOURCE: None given [facility] Statement Of Adequacy: SEE COMMENT [facility] Comment: Satisfactory for evaluation. Endocervical/transformation zone component absent. Age and/or menstrual status not provided 06/16/2021 9:08 AM EDT Nerissa Hayden CNM LAB PATHOLOGY ORDERABLES Final Result [facility] [address] from Last 3 Months or Most Recently Relevant to Health Maintenance Insurance [id number] [id number] [place] [address] C3 Care Teams Mitering Machine Operator Relationship Specialty Start Date End Date Katharine Neumann MD [address] [place] [address] PCP - General Internal Medicine 08/19/23
== END 2024-08-15 09:20 | disposition home or self-care (01) ==
LOC: HO.HOS 09:01
DX: M65.941 Unspecified synovitis and tenosynovitis, right hand (principal)
CPT/HCPCS: 99203

== ENCOUNTER → 2024-08-15 09:00 | Outpatient (BNVA) | payer MEDICAID, SELFPAY | DX: M65.949 Unspecified synovitis and tenosynovitis, unspecified hand (principal) | CPT/HCPCS: 99212 ==

== ENCOUNTER 2024-09-15 10:03 | Outpatient (RCR) | payer MEDICAID, SELFPAY ==
--- NOTE | 2024-08-29 10:16 | MHC.OT.OEV ---
[address] [phone] F: [phone] Occupational Therapy Evaluation Patient Name: Carmelina Bailey Diagnosis: (R)pre-trigger finger Date of Onset: Date of Surgery: Attending Provider: Wilfrid Hardin Prescribed Treatment: Follow Up Appointment: History of Current Condition: Patient is a 29 y/o very pleasant female with no significant PMHx, who was referred to skilled OT with a diagnosis of pre-trigger of the (R)MF with c/o pain. 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 She stated she believes she may have injured it when performing a supine to w/c transfer. It is a 0/10 in beginning of the day and 3/10 pain with edema at the end of the day. The pain is located at the A1 pully of the MF. Denies numbness/tingling. She lives with her in a 2 family home on the 1st floor. Reports her PLOF as (I)ADLs/IADLs. She states she had difficulty at work and doing chores around the house. She enjoys walking. Significant Medical History: No Precautions/Contraindications: Patient Goals: Hand Dominance: Right Observations: QuickDASH Score: Prior Level of Function and Occupation Self Care, Employment, Leisure: HEARING CONSULTANT worker interactive multimedia designer (I)ADLs/IADLs Living Situation, Family and/or Social Support: Lives with Current Level of Function and Occupation Self Care, Employment, Leisure: min (A) IADLs Sleep: sleeping through the night Driving: (I) Vision: Balance: Pain Assessment Pain Score: 3 Pain Scale Used: Numeric (0 - 10) Pain Location and Description: 0/10 at rest 3/10 at night aching pain Aggravating Factors: Alleviating Factors: ibuprofen Skin and Soft Tissue Assessment Skin and Soft Tissue: Comments: skin intact, mild edema around 3rd and 4th finger Nerve assessment Ulnar Nerve: Median Nerve: Radial Nerve: Comments: Sensory Assessment Temperature: Light Touch: Proprioception: Vibration: Comments: Edema Assessment Upper Extremity: Lower Extremity: Comments: Dexterity Assessment Dexterity: Comments: WFL Special Tests Comments: AROM(PROM) Strength Cervical Cervical Flexion: Cervical Extension: Cervical Lateral Flexion: Cervical Rotation: Comments: WFL Shoulder Flexion: Extension: Abduction: Internal Rotation: External Rotation: Comments: WFL Flexion: Extension: Abduction: Internal Rotation: External Rotation: Comments: WFL Elbow Flexion: Extension: Pronation: Supination: Comments: WFL Flexion: Extension: Pronation: Supination: Comments: WFL Wrist Flexion: Extension: Ulnar Deviation: Radial Deviation: Comments: Flexion: Extension: Ulnar Deviation: Radial Deviation: Comments: WFL Thumb Thumb CMC Flexion: Thumb MCP Flexion: Thumb IP Flexion: Radial Abduction: Palmar Abduction: Gamaliel (Kapandji 0-10): Comments: WFL Digits Index MCP: PIP: DIP: Long MCP: PIP: DIP: Ring MCP: PIP: DIP: Small MCP: PIP: DIP: Comments: WFL Gross Grasp: (R)N/A, (L)45lbs. Lateral Pinch: Two-Point Pinch: Three-Jaw Vishnu: Comments: Patient Education Primary Language: Bangladeshi Hoop Driving Machine Operator Helper Required: Yes Current Knowledge: Understands information with skills for self-management Teaching Method: Verbal Education Needs Identified on Evaluation: How did patient/family demonstrate learning? Patient demonstrates Patient verbalizes Barriers to Learning: None Readiness for Learning: Accepting Who was educated? Patient Comments: Plan of Care Assessment: Based on initial OT evaluation patient presents with edema, pain, impaired strength and impaired performance during self care tasks. Quick DASH= 27.3% indicating patient's perceived impairment during self care tasks. Due to the documented impairment's it is recommended that patient receive a short course of OT intervention in order for patient to maintain her joint integrity and achieve her PLOF of (I) during self care tasks. STG Duration: 2 weeks Short Term Goals: Patient will report 0/10 pain at the end of the night Patient will be (I) with orthosis wear schedule Patient will be (I) with joint protection techniques Patient will be (I) with self massage techniques LTG Duration: 4 weeks Healthcare Liaison Goals: Patient will be (I) with HEP Patient will report a decreased Quick DASH score of at least 10% or less Frequency and Duration: The patient will be seen 1 x a week for 4 weeks Treatment Plan: Therapeutic Exercise Therapeutic Activity Home Exercise Program Splinting Patient Education Edema Control ADL Training Ultrasound NMES Iontophoresis Paraffin Fluidotherapy MHP Cold Packs Joint Mobilization Soft Tissue Mobilization Kinesiotaping Other (see comments) Skilled OT eval and treat Electronically Signed By: RACHEL Rdz/Liz, CLT Reviewed/agree with student documentation: Therapist: Please sign and return to therapist, Thank you for your referral.
--- NOTE | 2024-09-18 08:26 | MHC.OT.DC ---
[address] [phone] F: [phone] Occupational Therapy Discharge Note Patient Name: Carmelina Bailey Provider: Wilfrid Hardin Diagnosis: (R)pre-trigger finger Date of Surgery: Date of Evaluation: 08/25/24 Date of Discharge: Treatments to Date: 3 Cancellations to Date: No Shows to Date: Discharge Status: Achieved Goals Improved Function Independent with HEP Discharge Summary: Patient is d/c'd from skilled OT as she has achieved all of her goals. At this time she reports 0/10 pain and her trigger finger splint fits well. Thank you for your referral, she was a pleasure to work with. Electronically Signed By: Elsie Mariscal OTR/L, CLT Reviewed/agree with student documentation: Therapist: Please Sign and return to therapist, thank you for your referral.
== END 2024-09-18 08:27 | disposition home or self-care (01) ==
LOC: HO.OT 10:03
PROVIDERS: PCP Internal Medicine
DX: M65.941 Unspecified synovitis and tenosynovitis, right hand (principal)
CPT/HCPCS: 29130; 97140; 97165; 97535; 97760

== ENCOUNTER 2024-10-30 11:04 | Outpatient (REF) | payer MEDICAID, SELFPAY ==
--- OUTSIDE RECORDS SUMMARY | 2024-10-30 12:24 | XMS_ITS | Encounter Summary ---
Author Organization [employer] Address [address] [facility] [address] [place] [address] Care Team Providers Care Bridge Engineer Name Role Phone Katharine Neumann MD Primary Care Provide r Reason for Visit * Reason Onset Date Comments Returning Call 08/20/2023 Encounter Details Date Type Department Care Team ([facility] st Contact Info) Description 08/20/2023 Telephone [facility] [address] [place], [place] [phone] Katharine Neumann MD [address] [place] [address] Returning Call Social History Tobacco Use Types [...] a call to schedule an appt but underwriter sees no tasks. documented in this encounter Plan of Treatment Upcoming Encounters Date Type Department Care Team (Late st Contact Info) Description 11/07/2024 1:45 PM EDT Telemedicine [facility] [address] [place], [place] [phone] Katharine Neumann MD [address] [place] [address] documented as of this encounter Visit Diagnoses Not on filedocumented in this encounter Additional Health Concerns Assessment Noted Time PHQ-9 Depression Total Score: 1 08/19/19 24 2:43 PM EDT documented as of this encounter Care Teams Bridge Engineer Relationship Specialty Start Date End Date Katharine Neumann MD [address] [place], [place] [phone] PCP - General Internal Medicine 08/19/23 documented as of this encounter
--- OUTSIDE RECORDS SUMMARY | 2024-10-30 12:24 | XMS_ITS | Encounter Summary ---
Author Organization [facility] Address [address] [place] [address] Phone Care Team Providers Care Second Class Welder Name Role Phone Cielo Orr MD Primary Care Provider [phone] Encounter Details Date Type Department Care Team (Late st Contact Info) Description 11/19/2016 Conversion Encounter [facility] [address] [place] [address] Social History Tobacco Use Types Packs/Day Years [...] on filedocumented in this encounter Care Teams Second Class Welder Relationship Specialty Start Date End Date Cielo Orr MD [address] [place] [address] PCP - General 11/13/16 07/09/22 documented as of this encounter
[2024-11-02 11:08] LABS: TS Negative Control Passed; TS Panel A 0; TS Panel B 0; TS Positive Control Passed; TSpotTB Negative (Negative)
== END 2024-10-30 11:05 | disposition home or self-care (01) ==
LOC: HO.HHCL 11:04
PROVIDERS: PCP Internal Medicine; Visit Provider Internal Medicine
DX: Z11.1 Encounter for screening for respiratory tuberculosis (principal)
CPT/HCPCS: 36415; 86481